=== PATIENT | female | born 1960 | race Caucasian/White ===

== ENCOUNTER → 2024-03-07 15:47 | Outpatient (REF) | payer OTHER, SELFPAY | LOC: DHCBC HW 15:47 | PROVIDERS: ATTENDING PHYSICIAN Internal Medicine; FAMILY PHYSICIAN Family Medicine | DX: I49.3 Ventricular premature depolarization (principal); I10 Essential (primary) hypertension; I42.8 Other cardiomyopathies | CPT/HCPCS: 93306 ==